=== PATIENT | female | born 1990 | race Asian ===

== ENCOUNTER 2017-07-02 03:06 | Emergency (ER) | payer MEDICAID ==
[~2017-07-02] VITALS: Ht 160 cm; Wt 99.8 kg
[2017-07-02 03:06] VITALS: BP_SYST 150
[~2017-07-02 03:06] MED LIST: HYDR-1189 PO; LEVO500T20 PO; OMEP10CA2 PO
[2017-07-02 04:20] VITALS: BP_SYST 127
== END 2017-07-02 04:20 | disposition home or self-care (01) ==
LOC: SED 03:06
DX: J20.9 Acute bronchitis, unspecified (principal); G44.209 Tension-type headache, unspecified, not intractable; Z86.718 Personal history of other venous thrombosis and embolism
CPT/HCPCS: 99283

== ENCOUNTER 2017-12-24 15:08 | Emergency (ER) | payer MEDICAID ==
[~2017-12-24] VITALS: Ht 160 cm; Wt 98.4 kg
[2017-12-24 15:10] VITALS: BP_SYST 120
[2017-12-24 15:44] LABS: BILIRUBIN,URINE NEGATIVE (NEGATIVE); CLARITY/URINE CLEAR (CLEAR); COLOR,URINE YELLOW (YELLOW); GLUCOSE,URINE NEGATIVE (NEGATIVE); KETONES,URINE NEGATIVE (NEGATIVE); LEUKOCYTE ESTERASE ,URINE NEGATIVE (NEGATIVE); NITRITE, URINE NEGATIVE (NEGATIVE); PROTEIN URINE NEGATIVE (NEGATIVE); UROBILINOGEN,URINE 0.2 (0.2-1.0)
[2017-12-24 15:48] LABS: BLOOD, URINE TRACE (NEGATIVE)
[2017-12-24 16:02] LABS: BACTERIA,URINE RARE /HPF (None Seen); RBC,URINE 0-3 /HPF (0-3); WBC,URINE 0-3 /HPF (0-3)
[2017-12-24 17:16] VITALS: BP_SYST 120
== END 2017-12-24 17:16 | disposition home or self-care (01) ==
LOC: SED 15:08
DX: O23.41 Unspecified infection of urinary tract in pregnancy, first trimester (principal); Z3A.11 11 weeks gestation of pregnancy; Z86.718 Personal history of other venous thrombosis and embolism
CPT/HCPCS: 81000-TC; 81025; 87210-TC; 99284

== ENCOUNTER 2018-03-12 23:17 | Observation (INO) | payer MEDICAID | END 2018-03-13 00:35 | disposition home or self-care (01) | LOC: SPU 23:17 | PROVIDERS: ADMIT Specialist; ATTEND Specialist | DX: O99.89 Other specified diseases and conditions complicating pregnancy, childbirth and the puerperium (principal); M54.5 Low back pain; Z3A.22 22 weeks gestation of pregnancy | CPT/HCPCS: G0378 ==

== ENCOUNTER 2018-06-03 23:15 | Observation (INO) | payer MEDICAID | END 2018-06-04 00:13 | disposition left against medical advice (07) | LOC: SPU 23:15 | PROVIDERS: ADMIT Obstetrics & Gynecology; ATTEND Obstetrics & Gynecology | DX: O26.893 Other specified pregnancy related conditions, third trimester (principal); R10.9 Unspecified abdominal pain; Z3A.39 39 weeks gestation of pregnancy | CPT/HCPCS: 81002; G0378 ==

== ENCOUNTER 2018-07-09 15:50 | Emergency (ER) | payer MEDICAID ==
[~2018-07-09] VITALS: Ht 160 cm; Wt 116.6 kg
[2018-07-09 15:50] VITALS: BP_SYST 129
[2018-07-09 16:45] LABS: BASOPHILS % (AUTO) 0.6 % (0.0-2.0); EOSINOPHILS # (AUTO) 0.1 K/uL (0.0-0.4); EOSINOPHILS % (AUTO) 1.6 % (0.0-4.0); HEMOGLOBIN 10.5 g/dL (12.0-16.0); LYMPHOCYTES % (AUTO) 39.4 % (20.5-51.5); MEAN CORPUSCULAR HEMOGLOBIN 27 pg (27-31); MEAN CORPUSCULAR HGB CONC 31 % (32-36); MEAN CORPUSCULAR VOLUME 87 fL (79.0-98.0); MONOCYTES # (AUTO) 0.3 K/uL (0.0-1.0); MONOCYTES % (AUTO) 6.7 % (1.7-9.3); NEUTROPHILS # (AUTO) 2.8 K/uL (1.8-7.7); NEUTROPHILS % (AUTO) 51.7 % (40.0-70.0); PLATELET COUNT (AUTO) 235 K/uL (130-430); RED BLOOD CELL COUNT(AUTO) 3.91 MIL/uL (4.2-6.2); RED CELL DISTRIBUTION WIDTH 13.8 % (9.0-15.0); WHITE BLOOD COUNT (AUTO) 5.2 K/uL (4.8-10.8)
[2018-07-09 16:49] LABS: CALCIUM 9.1 mg/dL (8.4-11.0); CREATININE 0.57 mg/dL (0.55-1.30); POTASSIUM 4.3 mmol/L (3.5-5.1)
[2018-07-09 16:50] LABS: INR 0.9 (0.8-1.2)
[2018-07-09 16:53] LABS: ALBUMIN 2.5 g/dL (3.4-4.8); TOTAL BILIRUBIN 0.3 mg/dL (0.0-1.0)
[2018-07-09] MEDS ORDERED: KETOROLAC TROMETHAMINE 60 MG/2 ML VIAL IM ONE (17:30)
[2018-07-09 17:45] LABS: BILIRUBIN,URINE NEGATIVE (NEGATIVE); BLOOD, URINE 3+ (NEGATIVE); CLARITY/URINE CLEAR (CLEAR); COLOR,URINE YELLOW (YELLOW); GLUCOSE,URINE NEGATIVE (NEGATIVE); KETONES,URINE NEGATIVE (NEGATIVE); LEUKOCYTE ESTERASE ,URINE 2+ (NEGATIVE); NITRITE, URINE NEGATIVE (NEGATIVE); PROTEIN URINE NEGATIVE (NEGATIVE); UROBILINOGEN,URINE 0.2 (0.2-1.0)
[2018-07-09 17:50] LABS: BACTERIA,URINE MODERATE /HPF (None Seen); RBC,URINE 20-50 /HPF (0-3); WBC,URINE 20-50 /HPF (0-3)
[2018-07-09 18:15] VITALS: BP_SYST 129
== END 2018-07-09 18:15 | disposition home or self-care (01) ==
LOC: SED 15:50
DX: O90.89 Other complications of the puerperium, not elsewhere classified (principal); M79.604 Pain in right leg; M79.605 Pain in left leg; N39.0 Urinary tract infection, site not specified; E66.01 Morbid (severe) obesity due to excess calories; Z68.42 Body mass index [BMI] 45.0-49.9, adult; Z86.718 Personal history of other venous thrombosis and embolism; Z79.899 Other long term (current) drug therapy
CPT/HCPCS: 36415; 71045; 80053; 81000; 85025; 85379; 85610; 87086; 87186; 93970; 96372; 99284; J1885

== ENCOUNTER 2018-08-28 01:24 | Emergency (ER) | payer MEDICAID ==
[~2018-08-28] VITALS: Ht 160 cm; Wt 108.9 kg
[2018-08-28 01:30] VITALS: BP_SYST 122
[2018-08-28] MEDS ORDERED: NACL 0.9% 1,000 ML IV ONE (01:45)
[2018-08-28] MEDS ORDERED: KETOROLAC TROMETHAMINE 30 MG VIAL IVP ONE (01:45)
[2018-08-28] MEDS ORDERED: ONDANSETRON HCL 4 MG/2 ML VIAL IVP ONE (02:15)
[2018-08-28] MEDS ORDERED: fentaNYL CITRATE/PF 100 MCG/2 ML AMP IVP ONE (02:15)
[2018-08-28 02:37] LABS: BASOPHILS # (AUTO) 0.2 K/uL (0.0-0.2); BASOPHILS % (AUTO) 2.7 % (0.0-2.0); EOSINOPHILS # (AUTO) 0.1 K/uL (0.0-0.4); EOSINOPHILS % (AUTO) 1.5 % (0.0-4.0); HEMATOCRIT 42.3 % (36-48); HEMOGLOBIN 13.8 g/dL (12.0-16.0); LYMPHOCYTES # (AUTO) 3.8 K/uL (1.0-5.5); LYMPHOCYTES % (AUTO) 51.3 % (20.5-51.5); MEAN CORPUSCULAR HEMOGLOBIN 28 pg (27-31); MEAN CORPUSCULAR HGB CONC 33 % (32-36); MEAN CORPUSCULAR VOLUME 85 fL (79.0-98.0); MONOCYTES # (AUTO) 0.4 K/uL (0.0-1.0); MONOCYTES % (AUTO) 5.6 % (1.7-9.3); NEUTROPHILS # (AUTO) 2.9 K/uL (1.8-7.7); NEUTROPHILS % (AUTO) 38.9 % (40.0-70.0); PLATELET COUNT (AUTO) 239 K/uL (130-430); RED BLOOD CELL COUNT(AUTO) 4.96 MIL/uL (4.2-6.2); RED CELL DISTRIBUTION WIDTH 14.1 % (9.0-15.0); WHITE BLOOD COUNT (AUTO) 7.4 K/uL (4.8-10.8)
[2018-08-28 02:45] LABS: BILIRUBIN,URINE NEGATIVE (NEGATIVE); BLOOD, URINE 1+ (NEGATIVE); CLARITY/URINE CLEAR (CLEAR); COLOR,URINE YELLOW (YELLOW); GLUCOSE,URINE NEGATIVE (NEGATIVE); KETONES,URINE NEGATIVE (NEGATIVE); LEUKOCYTE ESTERASE ,URINE NEGATIVE (NEGATIVE); NITRITE, URINE NEGATIVE (NEGATIVE); PH,URINE 5.5 (5.0-8.0); PROTEIN URINE NEGATIVE (NEGATIVE); UROBILINOGEN,URINE 0.2 (0.2-1.0)
[2018-08-28 02:49] LABS: CALCIUM 9.1 mg/dL (8.4-11.0); CREATININE 0.74 mg/dL (0.55-1.30); POTASSIUM 4.1 mmol/L (3.5-5.1)
[2018-08-28 02:53] LABS: ALBUMIN 3.7 g/dL (3.4-4.8); TOTAL BILIRUBIN 0.4 mg/dL (0.0-1.0)
[2018-08-28 02:56] LABS: BACTERIA,URINE FEW /HPF (None Seen); WBC,URINE 0-3 /HPF (0-3)
[2018-08-28] MEDS ORDERED: MORPHINE 4 MG/ML INJ. SYRINGE IVP ONE (03:00)
[2018-08-28 03:24] LABS: INR 0.9 (0.8-1.2); PROTHROMBIN TIME 9.4 SECS (9.5-12.5)
[2018-08-28 05:14] VITALS: BP_SYST 122
== END 2018-08-28 05:14 | disposition home or self-care (01) ==
LOC: SED 01:24
DX: R10.11 Right upper quadrant pain (principal); R03.0 Elevated blood-pressure reading, without diagnosis of hypertension; Z86.718 Personal history of other venous thrombosis and embolism; Z79.899 Other long term (current) drug therapy
CPT/HCPCS: 36415; 71045; 74176; 76700; 80053; 81025; 81000; 83690; 85025; 85610; 85730; 96374; 96375; 99284; J2270; J2405; J3010; J7030; J1885

== ENCOUNTER 2018-08-31 14:42 | Inpatient (IN) | payer MEDICAID ==
[~2018-08-31] VITALS: Ht 160 cm; Wt 113.4 kg
[2018-08-31 14:51] VITALS: BP_SYST 118
[2018-08-31 16:11] LABS: BASOPHILS # (AUTO) 0.1 K/uL (0.0-0.2); BASOPHILS % (AUTO) 1.2 % (0.0-2.0); EOSINOPHILS # (AUTO) 0.1 K/uL (0.0-0.4); EOSINOPHILS % (AUTO) 1.4 % (0.0-4.0); HEMATOCRIT 37.1 % (36-48); HEMOGLOBIN 12.2 g/dL (12.0-16.0); LYMPHOCYTES # (AUTO) 3.3 K/uL (1.0-5.5); LYMPHOCYTES % (AUTO) 53.3 % (20.5-51.5); MEAN CORPUSCULAR HEMOGLOBIN 28 pg (27-31); MEAN CORPUSCULAR HGB CONC 33 % (32-36); MEAN CORPUSCULAR VOLUME 84 fL (79.0-98.0); MONOCYTES # (AUTO) 0.4 K/uL (0.0-1.0); MONOCYTES % (AUTO) 6.4 % (1.7-9.3); NEUTROPHILS # (AUTO) 2.3 K/uL (1.8-7.7); NEUTROPHILS % (AUTO) 37.7 % (40.0-70.0); PLATELET COUNT (AUTO) 272 K/uL (130-430); RED BLOOD CELL COUNT(AUTO) 4.42 MIL/uL (4.2-6.2); WHITE BLOOD COUNT (AUTO) 6.2 K/uL (4.8-10.8)
[2018-08-31 16:19] LABS: CALCIUM 8.8 mg/dL (8.4-11.0); CREATININE 0.72 mg/dL (0.55-1.30); POTASSIUM 3.8 mmol/L (3.5-5.1)
[2018-08-31 16:24] LABS: ALBUMIN 3.4 g/dL (3.4-4.8); TOTAL BILIRUBIN 0.5 mg/dL (0.0-1.0)
[2018-08-31 16:59] LABS: BILIRUBIN,URINE NEGATIVE (NEGATIVE); CLARITY/URINE CLEAR (CLEAR); COLOR,URINE YELLOW (YELLOW); GLUCOSE,URINE NEGATIVE (NEGATIVE); KETONES,URINE NEGATIVE (NEGATIVE); LEUKOCYTE ESTERASE ,URINE NEGATIVE (NEGATIVE); NITRITE, URINE NEGATIVE (NEGATIVE); PROTEIN URINE NEGATIVE (NEGATIVE); UROBILINOGEN,URINE 0.2 (0.2-1.0)
[2018-08-31 17:00] LABS: BLOOD, URINE TRACE (NEGATIVE)
[2018-08-31 17:05] LABS: BACTERIA,URINE FEW /HPF (None Seen); RBC,URINE 0-3 /HPF (0-3); WBC,URINE 0-3 /HPF (0-3)
[2018-08-31] MEDS ORDERED: MORPHINE 4 MG/ML INJ. SYRINGE IVP ONE ×2 (17:45→18:45)
[2018-08-31] MEDS ORDERED: cefTRIAXone 1 GM IVPB PREMIX 50 ML IV ONE (19:00)
[2018-08-31] MEDS ORDERED: MUPIROCIN 2% TOPICAL OINTMENT 22 GM NS PRN (19:30)
[2018-08-31] MEDS ORDERED: ACETAMINOPHEN 325 MG TABLET PO PRN (19:30)
[2018-08-31] MEDS ORDERED: HYDROcodone/ACETAMIN 5-325 MG TAB (NORCO/ VICODIN) PO PRN (19:30)
[2018-08-31] MEDS ORDERED: DOCUSATE SODIUM 100 MG CAPSULE PO PRN (19:30)
[2018-08-31] MEDS ORDERED: POTASSIUM CHLORIDE 20 MEQ TAB.PRT.SR PO PRN (19:30)
[2018-08-31] MEDS ORDERED: MAGNESIUM SULFATE 50 ML IV PRN (19:30)
[2018-08-31 20:55] VITALS: BP_SYST 116
[2018-08-31] MEDS: HEPARIN SODIUM,PORCINE 5000 UNITS/ML VIAL SUBCUT SCH (21:00)
[2018-08-31] MEDS: MORPHINE 4 MG/ML INJ. SYRINGE IVP PRN (21:04)
[2018-08-31] MEDS ORDERED: HYDROmorphone 2 MG/ML VIAL IVP ONE (21:45)
[2018-08-31] MEDS: NACL 0.9% 1,000 ML IV SCH (22:29)
[2018-08-31] MEDS: ONDANSETRON HCL 4 MG/2 ML VIAL IVP PRN (22:30)
[2018-09-01 00:38] VITALS: BP_SYST 101
[2018-09-01] MEDS: HYDROmorphone 2 MG/ML VIAL IVP PRN ×4 (04:06→21:18)
[2018-09-01] MEDS: ONDANSETRON HCL 4 MG/2 ML VIAL IVP PRN ×2 (04:57→17:38)
[2018-09-01] MEDS: NACL 0.9% 1,000 ML IV SCH ×2 (05:19→14:24)
[2018-09-01 06:17] LABS: BASOPHILS # (AUTO) 0.1 K/uL (0.0-0.2); BASOPHILS % (AUTO) 1.1 % (0.0-2.0); EOSINOPHILS % (AUTO) 0.8 % (0.0-4.0); HEMATOCRIT 35.2 % (36-48); HEMOGLOBIN 11.5 g/dL (12.0-16.0); LYMPHOCYTES # (AUTO) 2.4 K/uL (1.0-5.5); LYMPHOCYTES % (AUTO) 39.2 % (20.5-51.5); MEAN CORPUSCULAR HEMOGLOBIN 28 pg (27-31); MEAN CORPUSCULAR HGB CONC 33 % (32-36); MEAN CORPUSCULAR VOLUME 85 fL (79.0-98.0); MONOCYTES # (AUTO) 0.3 K/uL (0.0-1.0); MONOCYTES % (AUTO) 5.5 % (1.7-9.3); NEUTROPHILS # (AUTO) 3.4 K/uL (1.8-7.7); NEUTROPHILS % (AUTO) 53.4 % (40.0-70.0); PLATELET COUNT (AUTO) 250 K/uL (130-430); RED BLOOD CELL COUNT(AUTO) 4.13 MIL/uL (4.2-6.2); WHITE BLOOD COUNT (AUTO) 6.2 K/uL (4.8-10.8)
[2018-09-01 06:22] LABS: CALCIUM 8.1 mg/dL (8.4-11.0); CREATININE 0.54 mg/dL (0.55-1.30); POTASSIUM 4.4 mmol/L (3.5-5.1)
[2018-09-01 06:31] LABS: PHOSPHORUS 4.2 mg/dL (2.7-4.5)
[2018-09-01 08:03] VITALS: BP_SYST 113
[2018-09-01] MEDS ORDERED: IOHEXOL 350 mgI/mL, 150 ML INFUS..BTL IV ONE (09:07)
[2018-09-01] MEDS: HEPARIN SODIUM,PORCINE 5000 UNITS/ML VIAL SUBCUT SCH ×2 (09:12→21:11)
[2018-09-01] MEDS ORDERED: LOVI40 SQ (09:47)
[2018-09-01 10:42] LABS: INR 0.9 (0.8-1.2); PROTHROMBIN TIME 9.5 SECS (9.5-12.5)
[2018-09-01] MEDS: METOCLOPRAMIDE HCL 10 MG/2 ML VIAL IVP PRN ×2 (11:16→21:35)
[2018-09-01] MEDS: MORPHINE 4 MG/ML INJ. SYRINGE IVP PRN ×3 (11:17→22:33)
[2018-09-01 11:25] VITALS: BP_SYST 117
[2018-09-01 15:54] VITALS: BP_SYST 111
[2018-09-01] MEDS ORDERED: cefTRIAXone 1 GM IVPB PREMIX 50 ML IV SCH (21:00)
[2018-09-01 21:07] VITALS: BP_SYST 110
[2018-09-01] MEDS ORDERED: cefTRIAXone 1 GM IVPB PREMIX 50 ML IV ONE (22:03)
[2018-09-02 01:00] VITALS: BP_SYST 101
[2018-09-02] MEDS: NACL 0.9% 1,000 ML IV SCH (01:13)
[2018-09-02 03:00] VITALS: BP_SYST 95
[2018-09-02 05:34] VITALS: BP_SYST 110
[2018-09-02] MEDS: ONDANSETRON HCL 4 MG/2 ML VIAL IVP PRN (05:35)
[2018-09-02] MEDS: MORPHINE 4 MG/ML INJ. SYRINGE IVP PRN (05:36)
[2018-09-02 06:41] LABS: BASOPHILS # (AUTO) 0.1 K/uL (0.0-0.2); BASOPHILS % (AUTO) 1.1 % (0.0-2.0); EOSINOPHILS # (AUTO) 0.1 K/uL (0.0-0.4); EOSINOPHILS % (AUTO) 1.7 % (0.0-4.0); HEMATOCRIT 32.9 % (36-48); HEMOGLOBIN 10.9 g/dL (12.0-16.0); LYMPHOCYTES # (AUTO) 3.5 K/uL (1.0-5.5); LYMPHOCYTES % (AUTO) 63.4 % (20.5-51.5); MEAN CORPUSCULAR HEMOGLOBIN 28 pg (27-31); MEAN CORPUSCULAR HGB CONC 33 % (32-36); MEAN CORPUSCULAR VOLUME 85 fL (79.0-98.0); MONOCYTES # (AUTO) 0.4 K/uL (0.0-1.0); MONOCYTES % (AUTO) 6.3 % (1.7-9.3); NEUTROPHILS # (AUTO) 1.5 K/uL (1.8-7.7); NEUTROPHILS % (AUTO) 27.5 % (40.0-70.0); PLATELET COUNT (AUTO) 214 K/uL (130-430); RED BLOOD CELL COUNT(AUTO) 3.86 MIL/uL (4.2-6.2); RED CELL DISTRIBUTION WIDTH 13.8 % (9.0-15.0); WHITE BLOOD COUNT (AUTO) 5.6 K/uL (4.8-10.8)
[2018-09-02 07:00] LABS: CALCIUM 7.9 mg/dL (8.4-11.0); CREATININE 0.5 mg/dL (0.55-1.30); POTASSIUM 3.7 mmol/L (3.5-5.1)
[2018-09-02 07:08] LABS: PHOSPHORUS 3.5 mg/dL (2.7-4.5)
[2018-09-02] MEDS: METOCLOPRAMIDE HCL 10 MG/2 ML VIAL IVP PRN (08:10)
[2018-09-02] MEDS: HYDROmorphone 2 MG/ML VIAL IVP PRN (08:10)
[2018-09-02] MEDS: HEPARIN SODIUM,PORCINE 5000 UNITS/ML VIAL SUBCUT SCH (08:12)
[2018-09-02] MEDS ORDERED: RIVA15TA PO (09:55)
[2018-09-02 09:56] VITALS: BP_SYST 115
[2018-09-02] MEDS ORDERED: ENOXAPARIN SODIUM 120 MG/0.8 ML SYRINGE SUBCUT ONE ×3 (10:00→21:00)
[2018-09-02 10:37] VITALS: BP_SYST 115
== END 2018-09-02 10:26 | disposition home or self-care (01) | DRG 561 ==
LOC: SED 14:42 → SMU 19:19 → STU 09-01 10:40
PROVIDERS: ADMIT Family Medicine; ATTEND Family Medicine
DX: O87.1 Deep phlebothrombosis in the puerperium (principal); I82.621 Acute embolism and thrombosis of deep veins of right upper extremity; Z68.41 Body mass index [BMI] 40.0-44.9, adult; E66.01 Morbid (severe) obesity due to excess calories; O91.12 Abscess of breast associated with the puerperium; D64.9 Anemia, unspecified; I82.890 Acute embolism and thrombosis of other specified veins; Z86.718 Personal history of other venous thrombosis and embolism
CPT/HCPCS: 36415; 71045; 71275; 80048; 80053; 81000-TC; 83036; 83605; 83735-TC; 84100-TC; 85025; 85610-TC; 87040-TC; 87081; 87086; 93971; 96365; 96375; 96376; 99285; G0378; J0696; J1170; J1644; J1650; J2270; J2405; J2765; J7030; Q9967

== ENCOUNTER 2018-09-12 23:18 | Emergency (ER) | payer MEDICAID ==
[~2018-09-12] VITALS: Ht 160 cm; Wt 111.1 kg
[~2018-09-12 23:18] MED LIST changes: -HYDR-1189 PO; -LEVO500T20 PO; -OMEP10CA2 PO; +RIVA15TA PO
[2018-09-12 23:30] VITALS: BP_SYST 144
[2018-09-12] MEDS ORDERED: guaiFENesin/DEXTROMETHORPHAN 10 ML UDC PO ONE (23:45)
[2018-09-13 00:20] VITALS: BP_SYST 134
== END 2018-09-13 00:20 | disposition home or self-care (01) ==
LOC: SED 23:18
DX: J06.9 Acute upper respiratory infection, unspecified (principal); J02.9 Acute pharyngitis, unspecified; Z86.718 Personal history of other venous thrombosis and embolism
CPT/HCPCS: 36415; 86710; 99283

== ENCOUNTER 2018-10-31 22:25 | Emergency (ER) | payer MEDICAID ==
[~2018-10-31] VITALS: Ht 160 cm; Wt 113.4 kg
[2018-10-31 22:38] VITALS: BP_SYST 156
--- NOTE | 2018-10-31 23:26 | NUR ---
Patient to ER bed 04 to gown for evaluation. Side rails up.
--- NOTE | 2018-10-31 23:26 | NUR ---
Patient called for the first time, patient not seen in ER lobby, ER hallway, or ER entrance.
--- NOTE | 2018-10-31 23:31 | NUR ---
Patient called for the second time, patient not seen in ER lobby, ER hallway, or ER entrance.
--- NOTE | 2018-10-31 23:37 | NUR ---
Patient called for the third time, patient not seen in ER lobby, ER hallway, or ER entrance. MD Bianchi made aware.
== END 2018-10-31 23:37 | disposition left against medical advice (07) ==
LOC: SED 22:25
DX: R51 Headache (principal); R03.0 Elevated blood-pressure reading, without diagnosis of hypertension; Z53.21 Procedure and treatment not carried out due to patient leaving prior to being seen by health care provider

== ENCOUNTER 2019-01-24 22:54 | Emergency (ER) | payer MEDICAID ==
[~2019-01-24] VITALS: Ht 160 cm; Wt 113.4 kg
[2019-01-24 22:58] VITALS: BP_SYST 139
[2019-01-25] MEDS ORDERED: KETOROLAC TROMETHAMINE 30 MG VIAL IM ONE (01:15)
[2019-01-25] MEDS ORDERED: KETOROLAC TROMETHAMINE 30 MG VIAL IVP ONE (01:30)
[2019-01-25 01:47] LABS: BASOPHILS # (AUTO) 0.1 K/uL (0.0-0.2); EOSINOPHILS # (AUTO) 0.1 K/uL (0.0-0.4); EOSINOPHILS % (AUTO) 1.9 % (0.0-4.0); HEMATOCRIT 38.8 % (36-48); HEMOGLOBIN 12.8 g/dL (12.0-16.0); LYMPHOCYTES # (AUTO) 3.5 K/uL (1.0-5.5); LYMPHOCYTES % (AUTO) 55.4 % (20.5-51.5); MEAN CORPUSCULAR HEMOGLOBIN 27 pg (27-31); MEAN CORPUSCULAR HGB CONC 33 % (32-36); MEAN CORPUSCULAR VOLUME 83 fL (79.0-98.0); MONOCYTES # (AUTO) 0.6 K/uL (0.0-1.0); MONOCYTES % (AUTO) 9.2 % (1.7-9.3); NEUTROPHILS # (AUTO) 2.1 K/uL (1.8-7.7); NEUTROPHILS % (AUTO) 32.5 % (40.0-70.0); PLATELET COUNT (AUTO) 250 K/uL (130-430); RED BLOOD CELL COUNT(AUTO) 4.65 MIL/uL (4.2-6.2); RED CELL DISTRIBUTION WIDTH 15.2 % (9.0-15.0); WHITE BLOOD COUNT (AUTO) 6.3 K/uL (4.8-10.8)
[2019-01-25 01:53] LABS: ANION GAP 10 (5-15); CALCIUM 8.8 mg/dL (8.4-11.0); CHLORIDE 106 mmol/L (98-107); CREATININE 0.65 mg/dL (0.55-1.30); GLUCOSE 88 mg/dL (70-99); POTASSIUM 3.7 mmol/L (3.5-5.1); SODIUM SERUM 141 mmol/L (136-145); UREA NITROGEN, BLOOD 14 mg/dL (8-21)
[2019-01-25 02:01] LABS: ALANINE AMINOTRANSFERASE 25 U/L (12-78); ALBUMIN 3.2 g/dL (3.4-4.8); ASPARTATE AMINOTRANSFERASE 15 U/L (10-37); TOTAL BILIRUBIN 0.2 mg/dL (0.0-1.0)
[2019-01-25 02:02] LABS: GFR AFRICAN AMERICAN 141 mL/min (>90)
[2019-01-25] MEDS ORDERED: MORPHINE 2 MG/ML INJ. SYRINGE IVP ONE (02:15)
[2019-01-25 03:11] VITALS: BP_SYST 132
== END 2019-01-25 03:11 | disposition home or self-care (01) ==
LOC: SED 22:54
DX: G56.01 Carpal tunnel syndrome, right upper limb (principal); R20.2 Paresthesia of skin
CPT/HCPCS: 36415; 80053; 84484; 85025; 85379; 93971; 96374; 96375; 99284; J1885; J2270

== ENCOUNTER 2019-03-18 17:15 | Emergency (ER) | payer MEDICAID ==
[~2019-03-18] VITALS: Ht 160 cm; Wt 121.1 kg
[2019-03-18 17:20] VITALS: BP_SYST 130
--- NOTE | 2019-03-18 17:25 | NUR ---
Patient triaged and placed in waiting room. VSS and patient appears in no acute distress at this time. Accompanied by GRANDMOTHER, awaiting available bed, and MD notified of need for MSE.
--- NOTE | 2019-03-18 17:41 | NUR ---
BROUGHT BACK TO BED #6 AND REPORT GIVEN TO ABDIRIZAK
--- NOTE | 2019-03-18 17:41 | NUR ---
Patient presented to ER with C/O left leg pain x2 days, cough X3 days, Patient A&Ox4, afebrile, ambulatory to ER arrived with mother. Patient states leg pain is 10/10 and she has a hx of DVT. Patient c/o cough x3 days, denies N/V/D. Patient denies other health Hx.
--- NOTE | 2019-03-18 18:25 | NUR ---
Radiology staf at bedside for Ultrasoung of leg.
--- NOTE | 2019-03-18 18:58 | NUR ---
ABELARDO Zaidi at bedside examining patient.
[2019-03-18] MEDS ORDERED: NACL 0.9% 1,000 ML IV ONE (19:00)
[2019-03-18] MEDS ORDERED: HYDROcodone/ACETAMIN 5-325 MG TAB (NORCO/ VICODIN) PO ONE (19:00)
--- NOTE | 2019-03-18 19:11 | NUR ---
Patient refused Calder, made Dr. Zaidi aware
[2019-03-18] MEDS ORDERED: MORPHINE 4 MG/ML INJ. SYRINGE IVP ONE (19:15)
--- NOTE | 2019-03-18 19:16 | NUR ---
Report to Mariangel TEE
--- NOTE | 2019-03-18 19:50 | NUR ---
PT went to CT with contrast via gurney, tolerated well. WIll cont. to monitor.
[2019-03-18] MEDS ORDERED: IOHEXOL 350 mgI/mL, 150 ML INFUS..BTL IV ONE (19:53)
[2019-03-18 21:13] VITALS: BP_SYST 130
--- NOTE | 2019-03-18 21:13 | NUR ---
Patient given written and verbal discharge instructions and verbalizes understanding. ER MD Dr. Randolph discussed with patient the results and treatment provided. Patient in stable condition. ID arm band removed. IV catheter removed intact and dressing applied, no active bleeding. Rx of ceftin and cherratussin given. Patient educated on pain management and to follow up with PMD. Pain Scale 0/10. Opportunity for questions provided and answered. Medication side effect fact sheet provided.
== END 2019-03-18 21:13 | disposition home or self-care (01) ==
LOC: SED 17:15
DX: L03.116 Cellulitis of left lower limb (principal); J20.9 Acute bronchitis, unspecified; R91.1 Solitary pulmonary nodule
CPT/HCPCS: 71275; 81025; 93971; 96374; 99284; J2270; J7030; Q9967

== ENCOUNTER 2019-04-30 22:50 | Emergency (ER) | payer MEDICAID ==
[~2019-04-30] VITALS: Ht 160 cm; Wt 108.9 kg
[2019-04-30 23:18] VITALS: BP_SYST 149
[2019-05-01] MEDS ORDERED: MORPHINE 4 MG/ML INJ. SYRINGE IM ONE (02:30)
[2019-05-01] MEDS ORDERED: FAMOTIDINE 20 MG TABLET PO ONE (02:30)
[2019-05-01] MEDS ORDERED: DIPHENHYDRAMINE INJ 50 MG/ML VIAL IM ONE (03:15)
[2019-05-01 05:14] VITALS: BP_SYST 149
== END 2019-05-01 05:14 | disposition home or self-care (01) ==
LOC: SED 22:50
DX: L30.9 Dermatitis, unspecified (principal)
CPT/HCPCS: 81025; 96372; 99283; J1200; J2270

== ENCOUNTER 2019-07-16 00:02 | Inpatient (IN) | payer MEDICAID ==
[~2019-07-16] VITALS: Ht 157.5 cm; Wt 123.4 kg
[2019-07-16 00:05] VITALS: BP_SYST 163
[2019-07-16] MEDS ORDERED: MORPHINE 4 MG/ML INJ. SYRINGE IVP ONE (03:30)
[2019-07-16 04:49] LABS: BASOPHILS % (AUTO) 0.5 % (0.0-2.0); EOSINOPHILS # (AUTO) 0.1 K/uL (0.0-0.4); EOSINOPHILS % (AUTO) 1.3 % (0.0-4.0); HEMATOCRIT 36.3 % (36-48); HEMOGLOBIN 12.2 g/dL (12.0-16.0); LYMPHOCYTES # (AUTO) 3.1 K/uL (1.0-5.5); LYMPHOCYTES % (AUTO) 47.9 % (20.5-51.5); MEAN CORPUSCULAR HEMOGLOBIN 29 pg (27-31); MEAN CORPUSCULAR HGB CONC 34 % (32-36); MEAN CORPUSCULAR VOLUME 85 fL (79.0-98.0); MONOCYTES # (AUTO) 0.5 K/uL (0.0-1.0); MONOCYTES % (AUTO) 7.4 % (1.7-9.3); NEUTROPHILS # (AUTO) 2.8 K/uL (1.8-7.7); NEUTROPHILS % (AUTO) 42.9 % (40.0-70.0); PLATELET COUNT (AUTO) 215 K/uL (130-430); RED BLOOD CELL COUNT(AUTO) 4.25 MIL/uL (4.2-6.2); RED CELL DISTRIBUTION WIDTH 14.8 % (9.0-15.0); WHITE BLOOD COUNT (AUTO) 6.4 K/uL (4.8-10.8)
[2019-07-16 05:04] LABS: CALCIUM 8.7 mg/dL (8.4-11.0); CREATININE 0.48 mg/dL (0.55-1.30); POTASSIUM 3.4 mmol/L (3.5-5.1)
[2019-07-16 05:11] LABS: TOTAL BILIRUBIN 0.2 mg/dL (0.0-1.0)
[2019-07-16] MEDS ORDERED: MORPHINE 2 MG/ML INJ. SYRINGE IVP ONE (06:00)
[2019-07-16 08:00] VITALS: BP_SYST 136
[2019-07-16] MEDS ORDERED: *LOVENOX 1MG/KG Q12H/PHARMACY XX PRN (10:45)
[2019-07-16] MEDS: PRENATAL VITS W-CA,FE,FA(<1MG) (PRENATAL) TABLET PO SCH (10:45)
[2019-07-16] MEDS ORDERED: ENOXAPARIN SODIUM 120 MG/0.8 ML SYRINGE SUBCUT ONE (11:00)
[2019-07-16 12:00] VITALS: BP_SYST 125
[2019-07-16] MEDS ORDERED: MEPERIDINE HCL/PF 50 MG/ML AMP ONE (15:44)
[2019-07-16] MEDS: MEPERIDINE HCL/PF 50 MG/ML AMP IVP PRN ×2 (15:57→20:54)
[2019-07-16 16:14] VITALS: BP_SYST 149
[2019-07-16] MEDS: ENOXAPARIN SODIUM 120 MG/0.8 ML SYRINGE SUBCUT SCH (20:18)
[2019-07-16 20:21] VITALS: BP_SYST 148
[2019-07-17] VITALS: BP_SYST 148
[2019-07-17] MEDS: MEPERIDINE HCL/PF 50 MG/ML AMP IVP PRN ×7 (00:02→21:55)
[2019-07-17 03:00] VITALS: BP_SYST 128
[2019-07-17] MEDS: ENOXAPARIN SODIUM 120 MG/0.8 ML SYRINGE SUBCUT SCH ×2 (08:07→21:44)
[2019-07-17] MEDS: PRENATAL VITS W-CA,FE,FA(<1MG) (PRENATAL) TABLET PO SCH (08:08)
[2019-07-17 09:26] VITALS: BP_SYST 143
[2019-07-17 12:50] VITALS: BP_SYST 140
[2019-07-17 16:53] VITALS: BP_SYST 144
[2019-07-17 20:00] VITALS: BP_SYST 129
[2019-07-18] VITALS: BP_SYST 131
[2019-07-18] MEDS: MEPERIDINE HCL/PF 50 MG/ML AMP IVP PRN ×5 (02:08→14:35)
[2019-07-18 08:00] VITALS: BP_SYST 148
[2019-07-18] MEDS: PRENATAL VITS W-CA,FE,FA(<1MG) (PRENATAL) TABLET PO SCH (08:15)
[2019-07-18] MEDS: ENOXAPARIN SODIUM 120 MG/0.8 ML SYRINGE SUBCUT SCH (08:16)
[2019-07-18 11:29] VITALS: BP_SYST 133
[2019-07-18 15:22] VITALS: BP_SYST 119
[2019-07-18] MEDS ORDERED: LOVI120 SUBCUT (15:22)
[2019-07-18 16:38] VITALS: BP_SYST 119
== END 2019-07-18 17:50 | disposition home or self-care (01) | DRG 566 ==
LOC: SED 00:02 → SMU 07:21
PROVIDERS: ADMIT Specialist; ATTEND Specialist
DX: O22.32 Deep phlebothrombosis in pregnancy, second trimester (principal); I82.432 Acute embolism and thrombosis of left popliteal vein; Z3A.14 14 weeks gestation of pregnancy; Z86.718 Personal history of other venous thrombosis and embolism; Z79.01 Long term (current) use of anticoagulants
CPT/HCPCS: 36415; 76801; 80053; 85025; 93971; 96374; 96376; 99285; J1650; J2175; J2270

== ENCOUNTER 2019-09-16 22:59 | Emergency (ER) | payer MEDICAID ==
[~2019-09-16] VITALS: Ht 160 cm; Wt 122.5 kg
[~2019-09-16 22:59] MED LIST changes: +LOVI120 SUBCUT; -RIVA15TA PO
[2019-09-16 23:02] VITALS: BP_SYST 129
--- NOTE | 2019-09-16 23:02 | NUR ---
Patient triaged and placed in waiting room. VSS and patient appears in no acute distress at this time. Accompanied by fam member, awaiting available bed, and MD notified of need for MSE.
[2019-09-17 00:58] LABS: BASOPHILS # (AUTO) 0.1 K/uL (0.0-0.2); BASOPHILS % (AUTO) 0.6 % (0.0-2.0); EOSINOPHILS # (AUTO) 0.1 K/uL (0.0-0.4); EOSINOPHILS % (AUTO) 1.5 % (0.0-4.0); HEMATOCRIT 35.3 % (36-48); HEMOGLOBIN 12.2 g/dL (12.0-16.0); LYMPHOCYTES # (AUTO) 2.6 K/uL (1.0-5.5); LYMPHOCYTES % (AUTO) 29.3 % (20.5-51.5); MEAN CORPUSCULAR HEMOGLOBIN 30 pg (27-31); MEAN CORPUSCULAR HGB CONC 35 % (32-36); MEAN CORPUSCULAR VOLUME 86 fL (79.0-98.0); MONOCYTES # (AUTO) 0.6 K/uL (0.0-1.0); MONOCYTES % (AUTO) 6.9 % (1.7-9.3); NEUTROPHILS # (AUTO) 5.6 K/uL (1.8-7.7); NEUTROPHILS % (AUTO) 61.7 % (40.0-70.0); PLATELET COUNT (AUTO) 269 K/uL (130-430); RED BLOOD CELL COUNT(AUTO) 4.09 MIL/uL (4.2-6.2)
[2019-09-17 01:19] LABS: CALCIUM 9.5 mg/dL (8.4-11.0); CREATININE 0.48 mg/dL (0.55-1.30); POTASSIUM 3.8 mmol/L (3.5-5.1)
[2019-09-17 01:24] LABS: INR 0.9 (0.8-1.2); PROTHROMBIN TIME 9.1 SECS (9.5-12.5)
[2019-09-17 01:25] LABS: ALBUMIN 2.9 g/dL (3.4-4.8); TOTAL BILIRUBIN 0.3 mg/dL (0.0-1.0)
--- NOTE | 2019-09-17 02:09 | NUR ---
Patient to ER bed 7 to gown for evaluation. Side rails up. Report given to Gissel TEE.
--- NOTE | 2019-09-17 02:12 | NUR ---
Patient complaining of shortness of breath x 2 weeks worsening. Patient reports history of DVT and reports being 23 weeks . Denies any pain at this time. No other complaints/injuries per patient or as noted. Will continue to monitor.
--- NOTE | 2019-09-17 02:18 | NUR ---
ER at bedside examining patient.
[2019-09-17] MEDS ORDERED: DIPHENHYDRAMINE INJ 50 MG/ML VIAL IM ONE (02:30)
[2019-09-17] MEDS ORDERED: MORPHINE 4 MG/ML INJ. SYRINGE IM ONE (02:30)
[2019-09-17] MEDS ORDERED: LEVALBUTEROL HCL 0.63 MG/3 ML VIAL.NEB INH ONE (02:30)
--- NOTE | 2019-09-17 02:40 | NUR ---
RT at bedside for breathing tx.
--- NOTE | 2019-09-17 02:46 | NUR ---
Patient requesting to have medications given IV. Patient states that when she gets IM injections she has a lot of pain. MD notified.
[2019-09-17] MEDS ORDERED: DIPHENHYDRAMINE INJ 50 MG/ML VIAL IVP ONE (03:00)
[2019-09-17] MEDS ORDERED: MORPHINE 4 MG/ML INJ. SYRINGE IVP ONE (03:00)
--- NOTE | 2019-09-17 03:13 | NUR ---
Report given to RANDAL Lux
[2019-09-17] MEDS ORDERED: AMOXICILLIN 500 MG CAPSULE PO ONE (03:45)
--- NOTE | 2019-09-17 04:03 | NUR ---
Attempted to discharge pt. Pt requests more pain medication before discharge. MD Bianchi notified.
--- NOTE | 2019-09-17 04:43 | NUR ---
Pt requested more pain meds. Stated that "about 4 mg of morphine might help"
--- NOTE | 2019-09-17 04:45 | NUR ---
Spoke with . made aware of pt request. No new orders.
--- NOTE | 2019-09-17 05:00 | NUR ---
Mother of patient bedside. States she will be providing ride home for patient.
[2019-09-17 05:40] VITALS: BP_SYST 127
--- NOTE | 2019-09-17 05:40 | NUR ---
Patient given written and verbal discharge instructions and verbalizes understanding. ER MD discussed with patient the results and treatment provided. Patient in stable condition. ID arm band removed. IV catheter removed intact and dressing applied, no active bleeding. Rx of Amoxicillin given. Patient educated on pain management and to follow up with PMD. Pain Scale 2/10. Opportunity for questions provided and answered. Medication side effect fact sheet provided.
== END 2019-09-17 05:40 | disposition home or self-care (01) ==
LOC: SED 22:59
DX: R06.02 Shortness of breath (principal)
CPT/HCPCS: 36415; 80053; 85025; 85379; 85610; 85730; 93970; 94640; 96374; 96375; 99284; J1200; J2270; J7614; 99283

== ENCOUNTER 2019-10-09 20:51 | Observation (INO) | payer MEDICAID | END 2019-10-09 21:40 | disposition home or self-care (01) | LOC: SPU 20:51 | PROVIDERS: ADMIT Obstetrics & Gynecology; ATTEND Obstetrics & Gynecology | DX: O62.9 Abnormality of forces of labor, unspecified (principal); O99.89 Other specified diseases and conditions complicating pregnancy, childbirth and the puerperium; M25.512 Pain in left shoulder; Z3A.26 26 weeks gestation of pregnancy | CPT/HCPCS: 59025; G0378 ==

== ENCOUNTER 2019-10-09 21:36 | Emergency (ER) | payer MEDICAID ==
[~2019-10-09] VITALS: Ht 160 cm; Wt 122.5 kg
[2019-10-09 21:40] VITALS: BP_SYST 136
--- NOTE | 2019-10-09 21:40 | NUR ---
Patient triaged and placed in waiting room. VSS and patient appears in no acute distress at this time. Accompanied by MOTHER, awaiting available bed, and MD notified of need for MSE.
--- NOTE | 2019-10-09 22:12 | NUR ---
Patient to ER bed 1 to gown for evaluation. Side rails up. Report given to MICHAEL TEE.
--- NOTE | 2019-10-09 22:12 | NUR ---
Pt c/o Right shoulder pain with numbness and tingling to RHA and sharpness to right neck worsening over the past 3 days. Denies c/o SOB or C/P. Family member at bedside.
--- NOTE | 2019-10-09 22:45 | NUR ---
ER at bedside examining patient.
--- NOTE | 2019-10-09 22:46 | NUR ---
America sherman in [facility] - 10/09/[address] Frazier at [facility].
[2019-10-09] MEDS ORDERED: MORPHINE 4 MG/ML INJ. SYRINGE IVP ONE (23:00)
[2019-10-09] MEDS ORDERED: ONDANSETRON HCL 4 MG/2 ML VIAL ONE (23:20)
[2019-10-09] MEDS ORDERED: ONDANSETRON HCL 4 MG/2 ML VIAL IVP ONE (23:30)
--- NOTE | 2019-10-09 23:46 | NUR ---
Pt to U/S via W/C in stable condition.
[2019-10-10 00:35] VITALS: BP_SYST 132
--- NOTE | 2019-10-10 00:35 | NUR ---
Patient given written and verbal discharge instructions and verbalizes understanding. ER MD discussed with patient the results and treatment provided. Patient in stable condition. ID arm band removed. IV catheter removed intact and dressing applied, no active bleeding. No Rx given. Patient educated on pain management and to follow up with PMD. Pain Scale 4/10. Opportunity for questions provided and answered. Medication side effect fact sheet provided.
== END 2019-10-10 00:35 | disposition home or self-care (01) ==
LOC: SED 21:36
DX: O26.893 Other specified pregnancy related conditions, third trimester (principal); M62.838 Other muscle spasm; Z3A.40 40 weeks gestation of pregnancy; Z86.718 Personal history of other venous thrombosis and embolism
CPT/HCPCS: 93971; 96374; 96375; 99284; J2270; J2405

== ENCOUNTER 2020-08-23 18:37 | Emergency (ER) | payer MEDICAID ==
[~2020-08-23] VITALS: Ht 160 cm; Wt 93.4 kg
[2020-08-23 18:50] VITALS: BP_SYST 127
--- NOTE | 2020-08-23 19:13 | NUR ---
Received patient to ER w/ c/o "abnormal labs (+) D Dimer, for which patient h/o DVT in the past to LLE states pain 10/10 to left arm and 9/10 to left leg, NVI, CMS intact, Peripheral pulses strong and palpable. introduced self to patient, positioned for comfort, bed to low position sr up, continue to monitor. Patient resting quietly. No acute distress noted. Vital signs within normal range.
--- NOTE | 2020-08-23 19:13 | NUR ---
Patient to ER bed 4 to gown for evaluation. Side rails up. Report given to KATHY TEE.
--- NOTE | 2020-08-23 20:00 | NUR ---
IV H.L. labs obtained and sent. pcxr done at bedside. Positioned for comfort and safety w/ bed to low position sr up, continue to monitor.
--- NOTE | 2020-08-23 20:23 | NUR ---
u/s tech at bedside.
[2020-08-23] MEDS ORDERED: HYDROcodone/ACETAMIN 5-325 MG TAB (NORCO/ VICODIN) PO ONE (20:30)
[2020-08-23 20:42] LABS: BASOPHILS % (AUTO) 0.7 % (0.0-2.0); EOSINOPHILS # (AUTO) 0.1 K/uL (0.0-0.4); EOSINOPHILS % (AUTO) 1.1 % (0.0-4.0); HEMOGLOBIN 14.5 g/dL (12.0-16.0); LYMPHOCYTES # (AUTO) 2.6 K/uL (1.0-5.5); LYMPHOCYTES % (AUTO) 50.7 % (20.5-51.5); MEAN CORPUSCULAR HEMOGLOBIN 29 pg (27-31); MEAN CORPUSCULAR HGB CONC 34 % (32-36); MEAN CORPUSCULAR VOLUME 86 fL (79.0-98.0); MONOCYTES # (AUTO) 0.3 K/uL (0.0-1.0); MONOCYTES % (AUTO) 6.6 % (1.7-9.3); NEUTROPHILS # (AUTO) 2.1 K/uL (1.8-7.7); NEUTROPHILS % (AUTO) 40.9 % (40.0-70.0); PLATELET COUNT (AUTO) 229 K/uL (130-430); RED BLOOD CELL COUNT(AUTO) 5.01 MIL/uL (4.2-6.2); RED CELL DISTRIBUTION WIDTH 14.1 % (9.0-15.0)
[2020-08-23 20:46] LABS: INR 0.9 (0.8-1.2); PROTHROMBIN TIME 9.4 SECS (9.5-12.5)
--- NOTE | 2020-08-23 20:46 | NUR ---
patient medicated as ordered. Will observe for any adverse reaction. Bed to low position sr up. continue to monitor. Patient resting quietly. No acute distress noted. Vital signs within normal range.
[2020-08-23 21:30] LABS: CALCIUM 9.4 mg/dL (8.4-11.0); CREATININE 0.77 mg/dL (0.55-1.30); POTASSIUM 3.8 mmol/L (3.5-5.1)
--- NOTE | 2020-08-23 21:30 | NUR ---
u/s completed. positioned for comfort and safety w/ bed to low position sr up, continue to monitor. Patient resting quietly. No acute distress noted. Vital signs within normal range.
[2020-08-23 21:38] LABS: TOTAL BILIRUBIN 0.6 mg/dL (0.0-1.0)
--- NOTE | 2020-08-23 22:08 | NUR ---
Patient given written and verbal discharge instructions and verbalizes understanding. ER MD discussed with patient the results and treatment provided. Patient in stable condition. ID arm band removed. IV catheter removed intact and dressing applied, no active bleeding.. Patient educated on pain management and to follow up with PMD. Pain Scale . Opportunity for questions provided and answered. Medication side effect fact sheet provided.
[2020-08-23 22:09] VITALS: BP_SYST 116
== END 2020-08-23 22:09 | disposition home or self-care (01) ==
LOC: SED 18:37
DX: M79.602 Pain in left arm (principal); M79.662 Pain in left lower leg
CPT/HCPCS: 36415; 71045; 80053; 84484; 85025; 85379; 85610-TC; 93005; 93971; 99285

== ENCOUNTER 2020-12-18 01:25 | Emergency (ER) | payer MEDICAID ==
[~2020-12-18] VITALS: Ht 160 cm; Wt 90.7 kg
[2020-12-18 01:41] VITALS: BP_SYST 124
[2020-12-18] MEDS ORDERED: HYDROcodone/ACETAMIN 5-325 MG TAB (NORCO/ VICODIN) PO ONE (02:45)
[2020-12-18] MEDS ORDERED: ACET-73 PO (03:10)
[2020-12-18 03:26] VITALS: BP_SYST 124
== END 2020-12-18 03:27 | disposition home or self-care (01) ==
LOC: SED 01:25
DX: S63.602A Unspecified sprain of left thumb, initial encounter (principal); Z79.899 Other long term (current) drug therapy; W01.10XA Fall on same level from slipping, tripping and stumbling with subsequent striking against unspecified object, initial encounter; Y93.89 Activity, other specified; Y92.89 Other specified places as the place of occurrence of the external cause; Y99.8 Other external cause status
CPT/HCPCS: 73140-TC; 99283

== ENCOUNTER 2021-02-01 23:17 | Emergency (ER) | payer MEDICAID ==
[~2021-02-01] VITALS: Ht 160 cm; Wt 88.5 kg
[~2021-02-01 23:17] MED LIST changes: +ACET-73 PO
[2021-02-01 23:31] VITALS: BP_SYST 126
[2021-02-02] MEDS ORDERED: traMADol HCL HCL 50 MG TABLET (ULTRAM) PO ONE
[2021-02-02] MEDS ORDERED: DIPHENHYDRAMINE HCL 25 MG CAPSULE PO ONE
[2021-02-02 00:47] LABS: BASOPHILS # (AUTO) 0.1 K/uL (0.0-0.2); EOSINOPHILS # (AUTO) 0.1 K/uL (0.0-0.4); EOSINOPHILS % (AUTO) 1.8 % (0.0-4.0); HEMATOCRIT 38.4 % (36-48); HEMOGLOBIN 12.9 g/dL (12.0-16.0); LYMPHOCYTES # (AUTO) 3.4 K/uL (1.0-5.5); LYMPHOCYTES % (AUTO) 54.4 % (20.5-51.5); MEAN CORPUSCULAR HEMOGLOBIN 29 pg (27-31); MEAN CORPUSCULAR HGB CONC 34 % (32-36); MEAN CORPUSCULAR VOLUME 87 fL (79.0-98.0); MONOCYTES # (AUTO) 0.4 K/uL (0.0-1.0); MONOCYTES % (AUTO) 6.3 % (1.7-9.3); NEUTROPHILS # (AUTO) 2.3 K/uL (1.8-7.7); NEUTROPHILS % (AUTO) 36.5 % (40.0-70.0); PLATELET COUNT (AUTO) 248 K/uL (130-430); RED BLOOD CELL COUNT(AUTO) 4.44 MIL/uL (4.2-6.2); WHITE BLOOD COUNT (AUTO) 6.3 K/uL (4.8-10.8)
[2021-02-02 00:58] LABS: CALCIUM 8.5 mg/dL (8.4-11.0); CREATININE 0.65 mg/dL (0.55-1.30); POTASSIUM 3.8 mmol/L (3.5-5.1)
[2021-02-02 01:11] LABS: INR 0.9 (0.8-1.2); PROTHROMBIN TIME 9.3 SECS (9.5-12.5)
[2021-02-02 03:02] VITALS: BP_SYST 113
== END 2021-02-02 03:02 | disposition home or self-care (01) ==
LOC: SED 23:17
DX: M79.662 Pain in left lower leg (principal); Z86.718 Personal history of other venous thrombosis and embolism
CPT/HCPCS: 36415; 80048; 85025; 85379; 85610; 85730; 93971; 99284; Q0163

== ENCOUNTER 2021-06-20 23:08 | Emergency (ER) | payer MEDICAID ==
[~2021-06-20] VITALS: Ht 160 cm; Wt 95.3 kg
[2021-06-20 23:13] VITALS: BP_SYST 121
[2021-06-20] MEDS ORDERED: RIVA20TA PO (23:17)
--- NOTE | 2021-06-20 23:43 | NUR ---
Patient ambulatory to bed 8 for evaluation
--- NOTE | 2021-06-20 23:47 | NUR ---
Assumed total care of patient. Patient AAO x4 from home c/o pain when deep breathing traveling to left shoulder/neck. Patient reports symptoms started 3 hours ago. Patient denies alleviating or worsening factors. Patient denies fever, chills, nausea, vomiting, cough, congestion. Patient denies past medical history or allergies to medications. Patient VSS, breathing even and unlabored, no signs of acute distress noted. Will continue to monitor.
--- NOTE | 2021-06-20 23:49 | NUR ---
ER Dr. Wayne at bedside examining patient.
--- NOTE | 2021-06-21 | NUR ---
Patient reports history of DVT, currently takes zarelto.
[2021-06-21] MEDS ORDERED: MORPHINE 4 MG INJ. 4 MG/ML VIAL IVP ONE (00:15)
[2021-06-21] MEDS ORDERED: ASPIRIN 81 MG TAB.CHEW PO ONE (00:15)
--- NOTE | 2021-06-21 00:26 | NUR ---
# 20 gauge angiocath placed to LEFT AC. Use of asceptic technique. Opsite placed over site. Blood return noted. Blood for lab drawn from site. Flushed with 10 cc of normal saline. No evidence of infiltration noted. Patient tolerated well.
[2021-06-21 00:55] LABS: BASOPHILS # (AUTO) 0.1 K/uL (0.0-0.2); BASOPHILS % (AUTO) 1.1 % (0.0-2.0); EOSINOPHILS # (AUTO) 0.1 K/uL (0.0-0.4); EOSINOPHILS % (AUTO) 1.5 % (0.0-4.0); HEMATOCRIT 37.1 % (36-48); HEMOGLOBIN 12.4 g/dL (12.0-16.0); LYMPHOCYTES # (AUTO) 2.9 K/uL (1.0-5.5); LYMPHOCYTES % (AUTO) 50.3 % (20.5-51.5); MEAN CORPUSCULAR HEMOGLOBIN 28 pg (27-31); MEAN CORPUSCULAR HGB CONC 34 % (32-36); MEAN CORPUSCULAR VOLUME 85 fL (79.0-98.0); MONOCYTES # (AUTO) 0.3 K/uL (0.0-1.0); NEUTROPHILS # (AUTO) 2.4 K/uL (1.8-7.7); NEUTROPHILS % (AUTO) 41.1 % (40.0-70.0); PLATELET COUNT (AUTO) 282 K/uL (130-430); RED BLOOD CELL COUNT(AUTO) 4.37 MIL/uL (4.2-6.2); RED CELL DISTRIBUTION WIDTH 13.9 % (9.0-15.0); WHITE BLOOD COUNT (AUTO) 5.8 K/uL (4.8-10.8)
[2021-06-21 01:04] LABS: CALCIUM 9.1 mg/dL (8.4-11.0); CREATININE 0.66 mg/dL (0.55-1.30); POTASSIUM 4.3 mmol/L (3.5-5.1)
[2021-06-21 01:09] LABS: INR 0.9 (0.8-1.2); PROTHROMBIN TIME 9.7 SECS (9.5-12.5)
[2021-06-21] MEDS ORDERED: LORazepam 2 MG/ML VIAL IVP ONE (01:15)
--- NOTE | 2021-06-21 01:22 | NUR ---
Patient medicated per MD orders. Patient tolerated well. Patient given pillow and warm blanket, lights dimmed. Will continue to monitor.
[2021-06-21 01:26] LABS: ALBUMIN 3.6 g/dL (3.4-4.8); TOTAL BILIRUBIN 0.3 mg/dL (0.0-1.0)
--- NOTE | 2021-06-21 02:53 | NUR ---
Dr. Wayne at bedside speaking with patient
[2021-06-21] MEDS ORDERED: KETOROLAC TROMETHAMINE 30 MG VIAL IVP ONE (03:00)
--- NOTE | 2021-06-21 03:15 | NUR ---
Patient ambulated to the restroom with steady gait.
--- NOTE | 2021-06-21 04:00 | NUR ---
Ultrasound at bedside examining patient
[2021-06-21 04:35] VITALS: BP_SYST 106
--- NOTE | 2021-06-21 04:35 | NUR ---
Patient given written and verbal discharge instructions and verbalizes understanding. ER MD discussed with patient the results and treatment provided. Patient in stable condition. ID arm band removed. IV catheter removed intact and dressing applied, no active bleeding. Rx of NORCO given. Patient educated on pain management and to follow up with PMD. Pain Scale 5/10. Opportunity for questions provided and answered. Medication side effect fact sheet provided.
== END 2021-06-21 04:35 | disposition home or self-care (01) ==
LOC: SED 23:08
DX: R07.89 Other chest pain (principal); R06.02 Shortness of breath; Z79.899 Other long term (current) drug therapy
CPT/HCPCS: 36415; 71045; 80053; 83880; 84484; 84702; 85025; 85379; 85610; 85730; 93005; 93971; 96374; 96375; 99285; J1885; J2060; J2270

== ENCOUNTER 2022-01-28 20:26 | Emergency (ER) | payer MEDICAID ==
[~2022-01-28] VITALS: Ht 160 cm; Wt 93.4 kg
[2022-01-28 20:26] VITALS: BP_SYST 117
[~2022-01-28 20:26] MED LIST changes: -ACET-73 PO; -LOVI120 SUBCUT; +RIVA20TA PO
--- NOTE | 2022-01-28 20:26 | NUR ---
Patient triaged and placed in waiting room. VSS and patient appears in no acute distress at this time. Accompanied by , awaiting available bed, and MD notified of need for MSE.
--- NOTE | 2022-01-28 22:46 | NUR ---
Patient to ER bed 05 to [facility] for evaluation. Side rails up. Report given to RANDAL JARRELL Addendum: 01/28/22 at 2309 by [email or web address] REPORT GIVEN TO RANDAL DRAPER
[2022-01-28] MEDS ORDERED: OXYCODONE/ACETAMINOPHEN *10*mg/325 mg TABLET PO ONE (23:30)
[2022-01-29] MEDS ORDERED: HYDR-3917 PO (00:02)
--- NOTE | 2022-01-29 00:08 | NUR ---
Patient given written and verbal discharge instructions and verbalizes understanding. ER MD discussed with patient the results and treatment provided. Patient in stable condition. ID arm band removed. IV catheter removed intact and dressing applied, no active bleeding. Rx of given. Patient educated on pain management and to follow up with PMD. Opportunity for questions provided and answered. pt exited ED in stable gait
[2022-01-29 00:09] VITALS: BP_SYST 125
== END 2022-01-29 00:09 | disposition home or self-care (01) ==
LOC: SED 20:26
DX: M79.662 Pain in left lower leg (principal); D68.9 Coagulation defect, unspecified; I82.402 Acute embolism and thrombosis of unspecified deep veins of left lower extremity; Z79.01 Long term (current) use of anticoagulants; Z79.899 Other long term (current) drug therapy
CPT/HCPCS: 93970; 99284

== ENCOUNTER 2022-02-26 09:48 | Emergency (ER) | payer MEDICAID ==
[~2022-02-26] VITALS: Ht 160 cm; Wt 90.7 kg
[~2022-02-26 09:48] MED LIST changes: +HYDR-3917 PO
[2022-02-26] MEDS ORDERED: LORazepam 1 MG TABLET PO ONE (10:00)
--- NOTE | 2022-02-26 10:00 | NUR ---
Pt presents to the ER BIB grandparent, CC chestpains. Pt is aaox4 even unlabored breathing. Pt pain scale 10/10 sharp intermittant. Pt denies NV, bowel sounds present, cap refill less than 3 sec., skin intact, NAD. Pt has a hx of anxiety.
--- NOTE | 2022-02-26 10:15 | NUR ---
Pt with bs for MSE.
--- NOTE | 2022-02-26 11:06 | NUR ---
Patient given written and verbal discharge instructions and verbalizes understanding. ER MD discussed with patient the results and treatment provided. Patient in stable condition. ID arm band removed.Patient educated on stress and reassurred EKG findings as reported per MD Gordon. Opportunity for questions provided and answered.
[2022-02-26 11:09] VITALS: BP_SYST 120
== END 2022-02-26 11:09 | disposition home or self-care (01) ==
LOC: SED 09:48
DX: R07.89 Other chest pain (principal); F41.9 Anxiety disorder, unspecified; Z79.899 Other long term (current) drug therapy
CPT/HCPCS: 71045; 81025; 93005; 99283

== ENCOUNTER 2022-06-12 02:47 | Emergency (ER) | payer MEDICAID ==
[~2022-06-12] VITALS: Ht 160 cm; Wt 95.3 kg
[2022-06-12 02:55] VITALS: BP_SYST 128
--- NOTE | 2022-06-12 02:55 | NUR ---
Patient to ER bed 8 to gown for evaluation. Side rails up. Report given to Ora TEE(reg).
--- NOTE | 2022-06-12 03:36 | NUR ---
ABELARDO Jean-Baptiste at bedside examining patient.
--- NOTE | 2022-06-12 03:38 | NUR ---
ER MARTINEZ Kamara at bedside examining patient.
[2022-06-12] MEDS ORDERED: MORPHINE 4 MG INJ. 4 MG/ML VIAL IVP ONE (03:45)
[2022-06-12] MEDS ORDERED: PROCHLORPERAZINE EDISYLATE 10 MG/2 ML VIAL IVP ONE (03:45)
[2022-06-12] MEDS ORDERED: NACL 0.9% 1,000 ML IV ONE (03:45)
[2022-06-12] MEDS ORDERED: DEXAMETHASONE SOD PHOSPHATE 10 MG/ML VIAL IVP ONE (03:45)
--- NOTE | 2022-06-12 04:09 | NUR ---
MEDICATED ORDERED V/SS, BP107/70, HR89 RR15, O2SAT 96% RA , PATIENT RESTING QUITELY WILL CONTINUE TO MONITOR
[2022-06-12] MEDS ORDERED: BUTA1CAP43 PO (05:44)
[2022-06-12] MEDS ORDERED: PHE25 PO (05:44)
[2022-06-12 06:29] VITALS: BP_SYST 96
--- NOTE | 2022-06-12 06:32 | NUR ---
PATIENT D/C HOME ,PATIENT STABLE AT TIME OF D/C, PATIENT AMBULATED OUT OF THE UNIT AFTER D/C, GAIT STEADY, NO SIGN/SYMPTOMS OF DISTRESS OR DISCOMFORT NOTED
== END 2022-06-12 06:29 | disposition home or self-care (01) ==
LOC: SED 02:47
DX: G43.909 Migraine, unspecified, not intractable, without status migrainosus (principal); Z79.899 Other long term (current) drug therapy
CPT/HCPCS: 99284; 96374; 96375; 96361; J1100; J0780; J2270; J7030

== ENCOUNTER 2022-06-14 17:49 | Emergency (ER) | payer MEDICAID ==
[~2022-06-14] VITALS: Ht 160 cm; Wt 95.3 kg
[~2022-06-14 17:49] MED LIST changes: +BUTA1CAP43 PO; +PHE25 PO
[2022-06-14 17:55] VITALS: BP_SYST 102
[2022-06-14] MEDS ORDERED: DIPHENHYDRAMINE INJ 50 MG/ML VIAL IVP ONE (18:00)
[2022-06-14] MEDS ORDERED: METOCLOPRAMIDE HCL 10 MG/2 ML VIAL IVP ONE (18:00)
[2022-06-14 18:42] LABS: BASOPHILS % (AUTO) 0.7 % (0.0-2.0); EOSINOPHILS % (AUTO) 0.1 % (0.0-4.0); HEMATOCRIT 39.5 % (36-48); HEMOGLOBIN 13.5 g/dL (12.0-16.0); LYMPHOCYTES # (AUTO) 0.6 K/uL (1.0-5.5); LYMPHOCYTES % (AUTO) 13.5 % (20.5-51.5); MEAN CORPUSCULAR HEMOGLOBIN 29 pg (27-31); MEAN CORPUSCULAR HGB CONC 34 % (32-36); MEAN CORPUSCULAR VOLUME 85 fL (79.0-98.0); MONOCYTES # (AUTO) 0.2 K/uL (0.0-1.0); MONOCYTES % (AUTO) 4.5 % (1.7-9.3); NEUTROPHILS # (AUTO) 3.4 K/uL (1.8-7.7); NEUTROPHILS % (AUTO) 81.2 % (40.0-70.0); PLATELET COUNT (AUTO) 190 K/uL (130-430); RED BLOOD CELL COUNT(AUTO) 4.67 MIL/uL (4.2-6.2); RED CELL DISTRIBUTION WIDTH 13.9 % (9.0-15.0); WHITE BLOOD COUNT (AUTO) 4.2 K/uL (4.8-10.8)
[2022-06-14 18:58] LABS: ANION GAP 7 (5-15); CALCIUM 9.4 mg/dL (8.4-11.0); CHLORIDE 101 mmol/L (98-107); CREATININE 0.82 mg/dL (0.55-1.30); GLUCOSE 85 mg/dL (70-99); UREA NITROGEN, BLOOD 21 mg/dL (8-21)
[2022-06-14 19:04] LABS: ALANINE AMINOTRANSFERASE 12 U/L (12-78); ALBUMIN 3.9 g/dL (3.4-4.8); AMYLASE 42 U/L (0-100); ASPARTATE AMINOTRANSFERASE 13 U/L (10-37); C-REACTIVE PROTEIN QUANT 11.3 mg/dL (0-0.5); LIPASE 100 U/L (73-393); TOTAL BILIRUBIN 0.4 mg/dL (0.0-1.0)
[2022-06-14 19:09] LABS: GFR AFRICAN AMERICAN 105 mL/min (>90)
[2022-06-14 19:09] LABS: BILIRUBIN,URINE NEGATIVE (NEGATIVE); BLOOD, URINE 2+ (NEGATIVE); CLARITY/URINE CLEAR (CLEAR); COLOR,URINE YELLOW (YELLOW); GLUCOSE,URINE NEGATIVE (NEGATIVE); KETONES,URINE NEGATIVE (NEGATIVE); LEUKOCYTE ESTERASE ,URINE NEGATIVE (NEGATIVE); NITRITE, URINE NEGATIVE (NEGATIVE); PH,URINE 5.5 (5.0-8.0); PROTEIN URINE NEGATIVE (NEGATIVE); UROBILINOGEN,URINE 0.2 (0.2-1.0)
[2022-06-14 19:43] LABS: BACTERIA,URINE FEW /HPF (None Seen); MUCUS,URINE None Seen /LPF (None Seen); WBC,URINE 0-3 /HPF (0-3)
[2022-06-14 19:43] LABS: ACETONE, SERUM NEGATIVE (NEGATIVE)
[2022-06-14] MEDS ORDERED: IBUP-1971 PO (20:24)
[2022-06-14] MEDS ORDERED: HYDR-3917 PO (20:24)
[2022-06-14] MEDS ORDERED: MORPHINE 2 MG/ML INJ. SYRINGE IVP ONE (20:30)
[2022-06-14 20:51] VITALS: BP_SYST 125
== END 2022-06-14 20:51 | disposition home or self-care (01) ==
LOC: SED 17:49
DX: G43.909 Migraine, unspecified, not intractable, without status migrainosus (principal); R10.9 Unspecified abdominal pain; R11.10 Vomiting, unspecified; Z79.899 Other long term (current) drug therapy
CPT/HCPCS: 99284; 74176; 96374; 96375; 80053; 81000; 82009; 82150; 83690; 85025; 86140; 36415; 76376; 81025; 83605; J2765; J2270

== ENCOUNTER 2022-12-11 19:49 | Emergency (ER) | payer MEDICAID ==
[~2022-12-11] VITALS: Ht 160 cm; Wt 89.4 kg
[2022-12-11 19:49] VITALS: BP_SYST 123
[~2022-12-11 19:49] MED LIST changes: +IBUP-1971 PO
--- NOTE | 2022-12-11 19:49 | NUR ---
Triaged and placed patient in ER bed 4 for evaluation. Bed placed in lowest position with side rails up. Report given to John TEE for continuity of care. Instructed to notify ED staff for any changes in condition or worsening of symptoms while waiting to be seen by a provider. Patient verbalized understanding.
--- NOTE | 2022-12-11 19:50 | NUR ---
Dr. Damon at bedside examining the patient.
--- NOTE | 2022-12-11 20:10 | NUR ---
IV ACCESSESS GAINED PER ORDER.
[2022-12-11 20:27] LABS: BILIRUBIN,URINE NEGATIVE (NEGATIVE); BLOOD, URINE NEGATIVE (NEGATIVE); CLARITY/URINE CLEAR (CLEAR); COLOR,URINE YELLOW (YELLOW); GLUCOSE,URINE NEGATIVE (NEGATIVE); KETONES,URINE NEGATIVE (NEGATIVE); LEUKOCYTE ESTERASE ,URINE NEGATIVE (NEGATIVE); NITRITE, URINE NEGATIVE (NEGATIVE); PH,URINE 6.5 (5.0-8.0); PROTEIN URINE NEGATIVE (NEGATIVE); UROBILINOGEN,URINE 0.2 (0.2-1.0)
[2022-12-11 20:34] LABS: HEMATOCRIT 33.1 % (36-48); HEMOGLOBIN 10.9 g/dL (12.0-16.0); MEAN CORPUSCULAR HEMOGLOBIN 30 pg (27-31); MEAN CORPUSCULAR HGB CONC 33 % (32-36); MEAN CORPUSCULAR VOLUME 89 fL (79.0-98.0); PLATELET COUNT (AUTO) 327 K/uL (130-430); RED CELL DISTRIBUTION WIDTH 14.9 % (9.0-15.0); WHITE BLOOD COUNT (AUTO) 4.6 K/uL (4.8-10.8)
[2022-12-11 20:38] LABS: ANION GAP 6 (5-15); CALCIUM 7.7 mg/dL (8.4-11.0); CHLORIDE 104 mmol/L (98-107); CREATININE 0.69 mg/dL (0.55-1.30); GFR AFRICAN AMERICAN 128 mL/min (>90); GLUCOSE 82 mg/dL (70-99); UREA NITROGEN, BLOOD 13 mg/dL (8-21)
[2022-12-11 20:45] LABS: ALANINE AMINOTRANSFERASE 70 U/L (12-78); AMYLASE 47 U/L (0-100); ASPARTATE AMINOTRANSFERASE 24 U/L (10-37); LACTATE DEHYDROGENASE 145 U/L (81-234); LIPASE 54 U/L (73-393); TOTAL BILIRUBIN 0.1 mg/dL (0.0-1.0)
[2022-12-11 20:51] LABS: C-REACTIVE PROTEIN QUANT < 0.2 mg/dL (0-0.5)
[2022-12-11 21:03] LABS: ATYPICAL LYMPHOCYTES % 5 % (0-0); BAND % (MANUAL) 0 % (0-6); BASOPHILS % (MANUAL) 0 % (0-2); EOSINOPHILS % (MANUAL) 0 % (0-7); LYMPHOCYTES % (MANUAL) 77 % (20-46); MONOCYTES % (MANUAL) 5 % (0-11)
[2022-12-11] MEDS ORDERED: TRAM50TA2 PO (21:27)
[2022-12-11] MEDS ORDERED: OMEP20CA15 PO (21:27)
[2022-12-11] MEDS ORDERED: MAG HYDROX/AL HYDROX/SIMETH 30 ML, DICYCLOMINE HCL 20 MG, LIDOCAINE VISCOUS 2% 15ML (PO... PO ONE ×3 (21:30)
[2022-12-11] MEDS ORDERED: MORPHINE 4 MG INJ. 4 MG/ML VIAL IM ONE (21:30)
--- NOTE | 2022-12-11 21:35 | NUR ---
DR MEDINA AT BEDSIDE TO DISCUSS FINDINGS ANDD DISCHARGE PLANS
[2022-12-11 21:39] LABS: ACETONE, SERUM NEGATIVE (NEGATIVE)
[2022-12-11 22:05] VITALS: BP_SYST 122
--- NOTE | 2022-12-11 22:08 | NUR ---
Patient given written and verbal discharge instructions and verbalizes understanding. ER MD MEDINA discussed with patient the results and treatment provided. Patient in stable condition. ID arm band removed. IV catheter removed intact and dressing applied, no active bleeding. Rx of PEPCID AND TRAMADOL given. Patient educated on pain management and to follow up with PMD. Pain Scale 2. Opportunity for questions provided and answered. Medication side effect fact sheet provided.
--- NOTE | 2022-12-18 16:55 | NUR ---
RECEIVED CALL FROM [facility] FOR PRESCRIPTION WRITTEN BY DR MEDINA LAST WEEK FOR TRAMADOL, PT HAS RECENTLY RECEIVED 120 OXYCODONE TABS, PRESCRIPTION CANCELLED.
== END 2022-12-11 21:50 | disposition home or self-care (01) ==
LOC: SED 19:49
DX: R10.13 Epigastric pain (principal); R07.9 Chest pain, unspecified; R11.0 Nausea; Z98.84 Bariatric surgery status; Z79.899 Other long term (current) drug therapy
CPT/HCPCS: 99285; 74176; 96374; 85027; 80053; 82009; 82150; 84703; 83615; 83690; 85007; 86140; 84484; 36415; 76376; 81025; 83605; 81003; J2001; J2270

== ENCOUNTER 2023-03-19 20:48 | Emergency (ER) | payer MEDICAID ==
[~2023-03-19] VITALS: Ht 160 cm; Wt 78.0 kg
[~2023-03-19 20:48] MED LIST changes: +OMEP20CA15 PO; +TRAM50TA2 PO
[2023-03-19 20:53] VITALS: BP_SYST 112; PULSE 88; RESP 18; TEMP 97.3; O2SAT 100
[2023-03-19 22:16] LABS: HEMATOCRIT 37.8 % (36-48); HEMOGLOBIN 12.5 g/dL (12.0-16.0); MEAN CORPUSCULAR HEMOGLOBIN 29 pg (27-31); MEAN CORPUSCULAR HGB CONC 33 % (32-36); MEAN CORPUSCULAR VOLUME 88 fL (79.0-98.0); PLATELET COUNT (AUTO) 261 K/uL (130-430); RED BLOOD CELL COUNT(AUTO) 4.29 MIL/uL (4.2-6.2); RED CELL DISTRIBUTION WIDTH 14.3 % (9.0-15.0); WHITE BLOOD COUNT (AUTO) 4.7 K/uL (4.8-10.8)
[2023-03-19 22:17] LABS: BILIRUBIN,URINE 2+ (NEGATIVE); BLOOD, URINE NEGATIVE (NEGATIVE); CLARITY/URINE CLEAR (CLEAR); COLOR,URINE YELLOW (YELLOW); GLUCOSE,URINE NEGATIVE (NEGATIVE); KETONES,URINE TRACE (NEGATIVE); LEUKOCYTE ESTERASE ,URINE NEGATIVE (NEGATIVE); NITRITE, URINE NEGATIVE (NEGATIVE); PH,URINE 6.5 (5.0-8.0); PROTEIN URINE 1+ (NEGATIVE)
[2023-03-19 22:23] LABS: ANION GAP 6 (5-15); CALCIUM 8.6 mg/dL (8.4-11.0); CARBON DIOXIDE 27 mmol/L (23-29); CHLORIDE 105 mmol/L (98-107); CREATININE 0.61 mg/dL (0.55-1.30); GFR AFRICAN AMERICAN 146 mL/min (>90); GLUCOSE 93 mg/dL (74-106); POTASSIUM 3.4 mmol/L (3.5-5.1); SODIUM SERUM 138 mmol/L (136-145); UREA NITROGEN, BLOOD 21 mg/dL (8-21)
[2023-03-19 22:26] LABS: BACTERIA,URINE RARE /HPF (None Seen)
[2023-03-19 22:30] LABS: ALANINE AMINOTRANSFERASE 4 U/L (12-78); ALBUMIN 3.8 g/dL (3.4-4.8); ASPARTATE AMINOTRANSFERASE 11 U/L (10-37); TOTAL BILIRUBIN 0.4 mg/dL (0.0-1.0); TOTAL PROTEIN, SERUM 7.6 g/dL (6.4-8.3)
[2023-03-19 22:32] LABS: BAND % (MANUAL) 1 % (0-6); BASOPHILS % (MANUAL) 0 % (0-2); EOSINOPHILS % (MANUAL) 0 % (0-7); GFR NON AFRICAN-AMERICAN 121 mL/min (>90); LYMPHOCYTES % (MANUAL) 67 % (20-46); MONOCYTES % (MANUAL) 6 % (0-11); PLATELET ESTIMATE ADEQUATE (ADEQUATE)
[2023-03-19 22:33] LABS: OVALOCYTES MODERATE; TEAR DROP CELLS FEW
[2023-03-19] MEDS ORDERED: KETOROLAC TROMETHAMINE 60 MG/2 ML VIAL IM ONE (22:45)
== END 2023-03-19 23:21 | disposition home or self-care (01) ==
LOC: SED 20:48
DX: M94.0 Chondrocostal junction syndrome [Tietze] (principal); R07.9 Chest pain, unspecified; Z79.899 Other long term (current) drug therapy
CPT/HCPCS: 99284; 85027; 80053; 81000; 85007; 85379; 84484; 36415; 93005; 96372; J1885

== ENCOUNTER 2023-04-24 01:19 | Emergency (ER) | payer MEDICAID ==
[~2023-04-24] VITALS: Ht 160 cm; Wt 76.2 kg
[2023-04-24 01:28] VITALS: BP_SYST 124; PULSE 104; RESP 17; TEMP 98; O2SAT 97
[2023-04-24 02:34] VITALS: BP_SYST 124; PULSE 104; RESP 17; TEMP 98; O2SAT 97
== END 2023-04-24 02:34 | disposition home or self-care (01) ==
LOC: SED 01:19
DX: J06.9 Acute upper respiratory infection, unspecified (principal); J02.8 Acute pharyngitis due to other specified organisms; Z79.899 Other long term (current) drug therapy; Z20.822 Contact with and (suspected) exposure to COVID-19
CPT/HCPCS: 36415; 99283

== ENCOUNTER 2023-06-06 15:56 | Emergency (ER) | payer MEDICAID ==
[~2023-06-06] VITALS: Ht 160 cm; Wt 76.2 kg
[2023-06-06 16:22] VITALS: BP_SYST 113; PULSE 74; RESP 20; TEMP 98.4; O2SAT 99
[2023-06-06 17:24] LABS: BASOPHILS % (AUTO) 0.5 % (0.0-2.0); EOSINOPHILS % (AUTO) 0.6 % (0.0-4.0); HEMATOCRIT 37.1 % (36-48); HEMOGLOBIN 12.4 g/dL (12.0-16.0); LYMPHOCYTES # (AUTO) 2.1 K/uL (1.0-5.5); LYMPHOCYTES % (AUTO) 47.6 % (20.5-51.5); MEAN CORPUSCULAR HEMOGLOBIN 30 pg (27-31); MEAN CORPUSCULAR HGB CONC 33 % (32-36); MEAN CORPUSCULAR VOLUME 90 fL (79.0-98.0); MONOCYTES # (AUTO) 0.4 K/uL (0.0-1.0); MONOCYTES % (AUTO) 8.2 % (1.7-9.3); NEUTROPHILS # (AUTO) 1.9 K/uL (1.8-7.7); NEUTROPHILS % (AUTO) 43.1 % (40.0-70.0); PLATELET COUNT (AUTO) 271 K/uL (130-430); RED BLOOD CELL COUNT(AUTO) 4.13 MIL/uL (4.2-6.2); RED CELL DISTRIBUTION WIDTH 13.6 % (9.0-15.0); WHITE BLOOD COUNT (AUTO) 4.4 K/uL (4.8-10.8)
[2023-06-06 17:34] LABS: INR 0.9 (0.8-1.2); PROTHROMBIN TIME 9.7 SECS (9.5-12.5)
[2023-06-06 17:36] LABS: CALCIUM 9.1 mg/dL (8.4-11.0); CREATININE 0.64 mg/dL (0.55-1.30); POTASSIUM 3.5 mmol/L (3.5-5.1); SERUM HCG (QUALITATIVE) NEGATIVE (NEGATIVE)
[2023-06-06 17:45] LABS: ALBUMIN 3.4 g/dL (3.4-4.8); TOTAL BILIRUBIN 0.4 mg/dL (0.0-1.0); TOTAL PROTEIN, SERUM 7.6 g/dL (6.4-8.3)
[2023-06-06] MEDS ORDERED: OMEP20CA15 PO (19:33)
[2023-06-06] MEDS ORDERED: TRAM50TA2 PO (19:33)
[2023-06-06 22:37] VITALS: BP_SYST 115; PULSE 70; RESP 20; TEMP 98.4; O2SAT 100
== END 2023-06-06 22:37 | disposition home or self-care (01) ==
LOC: SED 15:56
DX: K29.70 Gastritis, unspecified, without bleeding (principal); E87.1 Hypo-osmolality and hyponatremia; K92.1 Melena; R42 Dizziness and giddiness; Z79.899 Other long term (current) drug therapy
CPT/HCPCS: 36415; 76376; 80053; 82150; 83605; 83690; 84703; 85025; 85610-TC; 85730-TC; 99284

== ENCOUNTER 2023-09-20 01:31 | Emergency (ER) | payer MEDICAID ==
[~2023-09-20] VITALS: Ht 160 cm; Wt 74.4 kg
[2023-09-20 01:37] VITALS: BP_SYST 105; PULSE 116; RESP 20; TEMP 98.3; O2SAT 98
[2023-09-20] MEDS: LORazepam 2 MG/ML VIAL IVP ONE (02:27)
[2023-09-20 02:32] LABS: BASOPHILS # (AUTO) 0.1 K/uL (0.0-0.2); BASOPHILS % (AUTO) 1.1 % (0.0-2.0); EOSINOPHILS # (AUTO) 0.1 K/uL (0.0-0.4); EOSINOPHILS % (AUTO) 1.5 % (0.0-4.0); HEMATOCRIT 35.1 % (36-48); HEMOGLOBIN 12.3 g/dL (12.0-16.0); LYMPHOCYTES # (AUTO) 2.7 K/uL (1.0-5.5); LYMPHOCYTES % (AUTO) 54.8 % (20.5-51.5); MEAN CORPUSCULAR HEMOGLOBIN 31 pg (27-31); MEAN CORPUSCULAR HGB CONC 35 % (32-36); MEAN CORPUSCULAR VOLUME 89 fL (79.0-98.0); MONOCYTES # (AUTO) 0.5 K/uL (0.0-1.0); MONOCYTES % (AUTO) 9.2 % (1.7-9.3); NEUTROPHILS # (AUTO) 1.7 K/uL (1.8-7.7); NEUTROPHILS % (AUTO) 33.4 % (40.0-70.0); PLATELET COUNT (AUTO) 274 K/uL (130-430); RED BLOOD CELL COUNT(AUTO) 3.96 MIL/uL (4.2-6.2); RED CELL DISTRIBUTION WIDTH 13.4 % (9.0-15.0)
[2023-09-20] MEDS: KETOROLAC TROMETHAMINE 15 MG VIAL IVP ONE (02:37)
[2023-09-20 03:02] LABS: SERUM HCG (QUALITATIVE) NEGATIVE (NEGATIVE)
[2023-09-20 03:03] LABS: ANION GAP 7 (5-15); CALCIUM 8.6 mg/dL (8.4-11.0); CARBON DIOXIDE 27 mmol/L (23-29); CHLORIDE 107 mmol/L (98-107); CREATININE 0.56 mg/dL (0.55-1.30); GFR AFRICAN AMERICAN 161 mL/min (>90); GFR NON AFRICAN-AMERICAN 133 mL/min (>90); GLUCOSE 75 mg/dL (74-106); POTASSIUM 4.8 mmol/L (3.5-5.1); SODIUM SERUM 141 mmol/L (136-145); UREA NITROGEN, BLOOD 19 mg/dL (8-21)
[2023-09-20] MEDS: HYDROcodone/ACETAMIN 5-325 MG TAB (NORCO/ VICODIN) PO ONE (03:12)
[2023-09-20 03:25] VITALS: BP_SYST 123; PULSE 108; RESP 20; TEMP 98.1; O2SAT 99
== END 2023-09-20 03:25 | disposition home or self-care (01) ==
LOC: SED 01:31
DX: R07.9 Chest pain, unspecified (principal); F41.9 Anxiety disorder, unspecified; Z79.899 Other long term (current) drug therapy
CPT/HCPCS: 99285; 96374; 71045; 96375; 80048; 84703; 85025; 85379; 84484; 36415; 93005; J1885; J2060

== ENCOUNTER 2023-10-21 03:28 | Emergency (ER) | payer MEDICAID ==
[~2023-10-21] VITALS: Ht 160 cm; Wt 70.3 kg
[2023-10-21 03:42] VITALS: BP_SYST 118; PULSE 90; RESP 20; TEMP 97.7; O2SAT 98
[2023-10-21] MEDS: LORazepam 1 MG TABLET PO ONE (04:08)
[2023-10-21 04:15] VITALS: BP_SYST 118; PULSE 90; RESP 20; TEMP 97.7; O2SAT 98
== END 2023-10-21 04:08 | disposition home or self-care (01) ==
LOC: SED 03:28
DX: G47.00 Insomnia, unspecified (principal); F41.9 Anxiety disorder, unspecified; Z79.899 Other long term (current) drug therapy
CPT/HCPCS: 99283